=== PATIENT | male | born 1955 | race Caucasian/White ===

== ENCOUNTER 2019-10-07 16:56 | Emergency (ER) | payer BC ==
--- NOTE | 2019-10-07 17:18 | EDM.PDOC ---
ED HPI GENERAL MEDICAL PROBLEM - General Chief Complaint: Skin Complaint Stated Complaint: LEFT ARM PAIN Time Seen by Provider: 10/07/19 17:05 Source of Information: Reports: Patient History Limitations: Reports: No Limitations - History of Present Illness INITIAL COMMENTS - FREE TEXT/NARRATIVE: Notes reporting an abscess in the left armpit. He has had it for about a week yesterday it started draining. He has no medical problems such as diabetes-- controlled hypertension. No fever and it has not limited his shoulder or arm movement. He only came in because his made him. - Related Data Allergies Allergy/AdvReac Type Severity Reaction Status Date / Time No Known Allergies Allergy Verified 10/07/19 17:01 Home Meds: Home Meds Non-Formulary Medication [NF Drug] 1 each PO DAILY 10/07/19 [History] Non-Formulary Medication [NF Drug] 1 each PO DAILY 10/07/19 [History] Past Medical History Cardiovascular History: Reports: Hypertension Endocrine/Metabolic History: Reports: Hypothyroidism - Infectious Disease History Infectious Disease History: Reports: Chicken Pox Social & Family History - Family History Family Medical History: Noncontributory - Tobacco Use Smoking Status *Q: Current Every Day Smoker Years of Tobacco use: 20 Packs/Tins Daily: 1 - Caffeine Use Caffeine Use: Reports: Coffee - Recreational Drug Use Recreational Drug Use: No ED ROS GENERAL - Review of Systems Review Of Systems: Comprehensive ROS is negative, except as noted in HPI. ED EXAM, SKIN/RASH Exam: See Below Exam Limited By: No Limitations General Appearance: Alert, No Apparent Distress Ears: Normal External Exam Nose: Normal Inspection Throat/Mouth: Normal Inspection Head: Atraumatic, Normocephalic Neck: Normal Inspection Respiratory/Chest: No Respiratory Distress, Lungs Clear, Normal Breath Sounds Cardiovascular: Normal Peripheral Pulses, Regular Rate, Rhythm GI/Abdominal: Soft Neurological: Alert, Oriented Psychiatric: Normal Affect, Normal Mood Skin: Warm, Dry, Intact, Normal Color, No Rash, Other (Left axilla 3 x 2 abscess firm erythematous with open pustule in the center that is draining) Course - Vital Signs Last Recorded V/S: Last Vital Signs Temp 35.9 C L 10/07/19 17:02 Pulse 68 10/07/19 17:02 Resp 18 10/07/19 17:02 BP 192/95 H 05/12/20 17:02 Pulse Ox 98 10/07/19 17:02 Departure - Departure Time of Disposition: 17:16 Disposition: Home, Self-Care 01 Condition: Good Clinical Impression: Abscess - Discharge Information Referrals: PCP,Not In Area [Primary Care Provider] - [facility] [Outside] [facility] [Outside] Additional Instructions: 1. Warm moist compresses 3 times daily. Remove scab if present to allow drainage 2. Report promptly fever, chills, red streaks Sepsis Event Note - Evaluation Sepsis Screening Result: No Definite Risk - Focused Exam Vital Signs: Vital Signs Temp Pulse Resp BP Pulse Ox 10/07/19 17:02 35.9 C L 68 18 192/95 H 98 Date Exam was Performed: 10/07/19 Time Exam was Performed: 17:13
== END 2019-10-07 17:18 | disposition home or self-care (01) ==
LOC: MW.ED 16:56
DX: L02.412 Cutaneous abscess of left axilla (principal); I10 Essential (primary) hypertension; F17.210 Nicotine dependence, cigarettes, uncomplicated
CPT/HCPCS: 99282